=== PATIENT | male | born 1955 | race Caucasian/White ===

== ENCOUNTER 2016-09-06 13:21 | Emergency (ER) | payer OTHER ==
[~2016-09-06] VITALS: Ht 170.2 cm; Wt 102.1 kg
[2016-09-06 13:34] VITALS: BP 113/71
--- NOTE | 2016-09-06 14:35 | RADIOLOGY REPORT ---
EXAMINATION: LEFT FOOT SERIES CLINICAL INFORMATION: Fracture COMPARISON: None TECHNIQUE: 3 views of the left foot FINDINGS: There is a moderate-sized plantar calcaneal spur. The bones joints and soft tissues otherwise normal. I do not see a fracture. IMPRESSION: I do not see a fracture or acute abnormality. Plantar calcaneal spur
--- NOTE | 2016-09-06 14:40 | ED ANKLE/FOOT INJURY COMPLAINT ---
History of Present Illness General Chief Complaint: Foot or Ankle Injury Stated Complaint: L FOOT PAIN S/P KICKING TIRE YESTERDAY Source: patient, old records Exam Limitations: no limitations Vital Signs & Intake/Output Vital Signs & Intake/Output Vital Signs Date Time Temp Pulse Resp B/P B/P Pulse O2 O2 Flow FiO2 Mean Ox Delivery Rate 09/06 1334 97.4 79 16 113/71 99 Room Air Allergies Coded Allergies: NO KNOWN ALLERGIES (11/22/10) Reconcile Medications Budesonide/Formoterol Fumarate (Symbicort 160-4.5 Mcg Inhaler) 160 MCG-4.5 MCG/ ACTUATION HFA.AER.AD ASTHMA (Reported) Canagliflozin (Invokana) 100 MG TABLET 1 TAB PO DAILY DM (Reported) Oxycodone HCl/Acetaminophen (Percocet 5-325 MG Tablet) 5 MG-325 MG TABLET 1 TAB PO QPM PRN pain Spironolactone 25 MG TABLET 1 TAB PO DAILY LIVEE (Reported) Tiotropium [place] (Spiriva) 18 MCG CAP.W.DEV 1 CAP INH DAILY ASTHMA ( Reported) Triage Note: 61 Y/O MALE C/O PAIN TO L ANKLE AND L FOOT S/P KICKING A TIRE. STATES "I HEARD A SNAP AND THEN I COULDNT WALK AT ALL". STATES PAIN IS IN ENTIRE FOOT AND ANKLE. 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 XRAYS ORDERED. DECLINES MEDS, HAS TAKEN TYLENOL WITH NO RELIEF. Triage Nurses Notes Reviewed? yes Occurred: yesterday Duration: day(s): (2), constant Timing: recent history Severity: moderate Severity Numbers: 7 Pain/Injury Location: Right: Foot, Ankle. Method of Injury: direct blow Modifying Factors: Improves With: rest. Worsens With: movement. Associated Symptoms: none HPI: 61-year-old male presents to ER for evaluation complaining of posterior left ankle and foot pain after he states he kicked a tire and felt a "pull and snap. He states that the pain has been improved with rest however it is worse with weightbearing. He took ibuprofen with no improvement. He denies radiation of pain no numbness or tingling. No knee back hip pain. There are no other modifying factors or associated symptoms otherwise. (BEHZAD ORNELAS,EVERETTE) Past History Travel History Traveled to [place] past 21 day No Medical History Any Pertinent Medical History? 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 No (EVERETTE BUENO) Review of Systems Review of Systems Constitutional: Reports: see HPI. All Other Systems: Reviewed and Negative Comments Review of systems: See HPI, All other systems negative. Constitutional, no chills no fever, no malaise HEENT: No visual changes no sore throat no congestion Cardiovascular: No chest pain , no palpitation Skin: no rashes, no change in skin Respiratory: No dyspnea no cough no sputum GI: No nausea no vomiting, no diarrhea, : No dysuria Muscle skeletal: No joint pain, no joint swelling, no back pain, no neck pain, Neurologic: No numbness no headache Psych: No stress Heme/endocrine: No bruising no bleeding Immunology: No lymphadenopathy (EVERETTE BUENO) Physical Exam Physical Exam General Appearance: well developed/nourished, no apparent distress, alert, awake Leg/Knee/Thigh Left: normal range of motion Comments: Well-developed well-nourished patient in no apparent distress. HEENT: Atraumatic, extraocular motion intact Neck: Supple, FROM Back: FROM Cardiovascular: Regular rate and rhythms no murmurs rubs Respiratory: No respiratory distress. Patient speaking in full complete sentences. Breath sounds clear to auscultation bilaterally: NO W/R/R Upper Extremities: full range of motion Hip/Pelvis: Atraumatic/Stable. FROM. No pain with pelvic compression Knee: Atraumatic/stable. FROM. No joint swelling, no effusion. No laxity. Negative stacey/anterior drawer test. No pain with ROM Leg: Atraumatic. Nontender. No edema, 5 out of 5 strength in the lower extremity, normal dorsiflexion of great toe bilaterally, gross sensation is intact, Ankle/Foot: Mild tenderness over the posterior aspect of the medial and lateral malleolus, there is no ecchymosis no swelling Atraumatic/stable. Skin intact. FROM. No swelling, no effusion. No laxity on exam Pulses: Normal/equal DP/PT pulses bilaterally. Brisk cap refill Neuro: awake, alert, and oriented to person, place and time. There were no obvious focal neurologic abnormalities. Skin: Warm & dry;No appreciable rash on exposed skin Psych: Mood affect normal, normal memory normal judgment. (EVERETTE BUENO) Progress Differential Diagnosis: gout, fracture, dislocation, sprain, contusion, compartmental syndrome, achilles tendon injury Plan of Care: Orders Procedure Date/time Status Durable Medical Equipment 09/07 1447 Active X-ray was ordered from triage I discussed with the patient at length all of their results. I had an extensive conversation regarding need for close follow up with their primary care physician this week as well as return precautions. I answered all of their questions, they feel comfortable with the plan and follow-up care. I discussed the medications that they will receive with the patient. I gave them signs and symptoms that could indicate an adverse reaction. I have advised them to limit their activities until they can see how they respond to the medication. (EVERETTE BUENO) Diagnostic Imaging: Viewed by Me: Radiology Read. Discussed w/RAD: Radiology Read. Radiology Impression: PATIENT: ABBEY PALOMO PRESENT AGE: 61 PATIENT ACCOUNT NO: [id number] : 59 LOCATION: [facility] ORDERING PHYSICIAN: EVERETTE ORNELAS SERVICE DATE: 09/06/16 EXAM TYPE: RAD - XRY-ANKLE 3 OR MORE VIEWS L; XRY-FOOT COMPLETE, LEFT EXAMINATION: LEFT FOOT SERIES CLINICAL INFORMATION: Fracture COMPARISON: None TECHNIQUE: 3 views of the left foot FINDINGS: There is a moderate-sized plantar calcaneal spur. The bones joints and soft tissues otherwise normal. I do not see a fracture. IMPRESSION: I do not see a fracture or acute abnormality. Plantar calcaneal spur DICTATED BY: RAHEL BRIAN MD DATE/TIME DICTATED:09/06/161425 PODIATRY DOCTOR:KUSUM DATE/TIME TRANSCRIBED:09/06/161425 CONFIDENTIAL, DO NOT COPY WITHOUT APPROPRIATE AUTHORIZATION. <Electronically signed in Other Vendor System> SIGNED BY: RAHEL BRIAN MD 09/06/16 1435 (EVERETTE BUENO) Departure Departure Time of Disposition: 1444 Disposition: HOME OR SELF CARE Condition: Stable Clinical Impression Primary Impression: Foot sprain Referrals: VINNY HODGSON (PCP/Family) Additional Instructions: rest, ice, tylenol or motrin. crutches when ambulatory. follow up with orthopedist dr rosario if symptoms persist. percocet for breakthrough pain- this is a narcotic and highly addictive no driving or drinking alcohol while taking. this was sent to [facility] Departure Forms: Customer Survey General Discharge Information Prescriptions: Current Visit Scripts Oxycodone HCl/Acetaminophen (Percocet 5-325 MG Tablet) 1 TAB PO QPM PRN pain #6 TAB (EVERETTE BUENO) PA/PROJECT MANAGEMENT PROFESSOR Co-Sign Statement Statement: ED Attending supervision documentation- [] I saw and evaluated the patient. I have also reviewed all the pertinent lab results and diagnostic results. I agree with the findings and the plan of care as documented in the PA's/PROJECT MANAGEMENT PROFESSOR's documentation. [x] I have reviewed the ED Record and agree with the PA's/PROJECT MANAGEMENT PROFESSOR's documentation. [] Additions or exceptions (if any) to the PAs/PROJECT MANAGEMENT PROFESSOR's note and plan are summarized below: [] (MARTHA HUITRON DO
[2016-09-06] MEDS ORDERED: PERCOCET 5-3251 EACH PO (14:47)
[2016-09-06] MEDS ORDERED: INVOKANA100 M1 PO (14:52)
[2016-09-06] MEDS ORDERED: SPIRIVA18 MCG INH (14:53)
[2016-09-06] MEDS ORDERED: SPIRONOLACTONE25 M1 PO (14:53)
[2016-09-06] MEDS ORDERED: SYMBICORT 16010.2 GM (14:54)
== END 2016-09-06 14:54 ==
LOC: ERH 13:21
DX: S93.602A Unspecified sprain of left foot, initial encounter (principal); W22.8XXA Striking against or struck by other objects, initial encounter; Y93.89 Activity, other specified; Y92.9 Unspecified place or not applicable
CPT/HCPCS: 73610-LT; 73630-LT

== ENCOUNTER 2017-06-14 16:01 | Emergency (ER) | payer OTHER ==
[~2017-06-14 16:01] MED LIST: INVOKANA100 M1 PO; PERCOCET 5-3251 EACH PO; SPIRIVA18 MCG INH; SPIRONOLACTONE25 M1 PO; SYMBICORT 16010.2 GM
== END 2017-06-14 16:28 | disposition admitted as inpatient to this hospital (09) ==
LOC: ERH 16:01
DX: K05.219 Aggressive periodontitis, localized, unspecified severity (principal)